=== PATIENT | male | born 1965 | race Caucasian/White ===

== ENCOUNTER 2023-03-19 07:40 | Emergency (ER) | payer MEDICARE, SELFPAY ==
[2023-03-19 07:42] VITALS: BP 169/101; PULSE 100; RESP 16; TEMP 35.9; O2SAT 95
--- NOTE | 2023-03-19 08:03 | EX.ED.DYSGE1 ---
HPI History of Present Illness Chief Complaint: Flank Pain Narrative Narrative: Patient presents with back pain for a few months he was given muscle relaxants but he still has pain is mechanical it is worse when he moves twists or especially tries to get out of the car. He does not have any radicular symptoms, no weakness or paresthesias. He does have a history of spinal stenosis status post upper lumbar and lower thoracic surgery [facility] Medical History (Updated 03/19/23 @ 08:[address] Terell Shields MD) Kidney anomaly, congenital Spinal cord compression due to degenerative disorder of spinal column Home Medications cetirizine 10 mg capsule (Zyrtec) 10 mg PO DAILY #14 CAPSULES 03/19/23 [Rx Last Taken Unknown] naproxen 500 mg tablet (Naprosyn) 500 mg PO BID PRN pain #20 tabs 03/19/23 [Rx Last Taken Unknown] tizanidine 4 mg tablet 4 mg PO QHS PRN muscle spasticity #20 tabs 03/19/23 [Rx Last Taken Unknown] Allergy/AdvReac Type Severity Reaction Status Date / Time No Known Allergies Allergy Verified 03/19/23 07:42 Social History Smoking Status: Never smoker ROS ROS ED ROS Narrative Past medical history: Reviewed Medications: Reviewed Social history: Noncontributory Review of systems: All systems negative except as indicated General: No fever Neck: No neck pain Cardiovascular: No chest pain Respiratory: No shortness of breath or cough Gastrointestinal: No abdominal pain, nausea vomiting or diarrhea Genitourinary: No dysuria, no hematuria. No flank pain. Musculoskeletal: Back pain as in HPI Skin: No rash Neurological: No weakness or paresthesias EXAM Physical Exam Narrative Exam Narrative: Vitals reviewed General: Patient appears in some discomfort HEENT: Moist mucous membranes. He has some rhinorrhea, swollen nasal turbinates however there pain consistent with likely allergic rhinitis. Very slight postnasal drip is present. Neck: Nontender Cardiovascular normal heart rate Respiratory: No respiratory difficulty speaking in full sentences Abdomen: Soft and nontender, there is no suprapubic mass or pain Back: There is some tenderness over the lumbar region, pain is mostly left paraspinal region. It does not extend into the CVA region. It is mechanical and quite reproducible. Extremities: Moves all extremities without joint pain or signs of trauma Neurological: There is normal plantar flexion and dorsiflexion of both feet and great toes. Patellar and Achilles reflexes are normal. Normal strength and sensation. Negative straight leg test. Skin: No rash Psychiatric: Slightly anxious. Const Vital Signs: 03/19/23 07:42 Temperature 96.7 F L Temperature Source Temporal Pulse Rate 100 Respiratory Rate 16 Blood Pressure 169/101 H Blood Pressure Mean 123 Pulse Ox 95 Oxygen Delivery Method Room Air MDM MDM MDM Narrative Medical decision making narrative: Not related to his chief complaint however patient does have evidence of allergic rhinitis which she asked me to treat. I will give him Zyrtec. He has lumbar back pain, chief complaint did say flank pain however the patient's pain is not in that region I thought about kidney stones I do not think patient has kidney stones. His pain is quite mechanical and reproducible therefore I am not worried about an intra-abdominal or aortic catastrophe. X-ray LS-spine read by me is unremarkable other than hardware and degeneration but no acute fracture. He may have a spinal issue therefore referred to spinal surgeon in [facility]. Otherwise I will treat with muscle relaxers and NSAIDs. I will also give him Zyrtec for his allergic rhinitis. He does not meet criteria for a stat MRI at this time as he has no red flags. Radiography Diagnostic Testing: LS-spine x-ray read by me as normal Discharge Plan Triage Chief Complaint: Flank Pain ED Provider: Terell Shields Dx/Rx/DC Orders Clinical Impression: Back pain, Allergic rhinitis Instructions: Back Basics: A Healthy Spine Prescriptions: New naproxen [Naprosyn] 500 mg tablet 500 mg PO BID PRN (Reason: pain) Qty: 20 0RF Zyrtec 10 mg capsule 10 mg PO DAILY Qty: 14 0RF tizanidine 4 mg tablet 4 mg PO QHS PRN (Reason: muscle spasticity) Qty: 20 0RF Primary Care Provider: Artur Miles Referrals: Artur Miles MD [Primary Care Provider] - Artur Ugarte DO [Med Staff - Active Staff] - 3-5 Days Disposition Disposition: Home, Self Care
--- NOTE | 2023-03-19 08:07 | RAD_ITS ---
STUDY: X-RAY - LUMBAR SPINE REASON FOR EXAM: Male, 58 years old. Right lower back pain for 2 days. TECHNIQUE: 2 view(s) of the lumbar spine were obtained. COMPARISON: None FINDINGS: Normal lumbar lordosis. There is a mild levoscoliosis of the lumbar spine. There is a normal alignment of the vertebrae. There is multilevel endplate spondylosis of the lumbar vertebrae. There is multi-level degenerative disc disease with multi-level disc space narrowing. Surgical clips are seen in the right upper quadrant. Prior fusion at the T11-T12 level. RAD/Lumbar Spine 2 or 3 Views IMPRESSION: Degenerative changes of the spine, as detailed above. Electronically Signed: Bhaskar Domingo MD at 8:35 EDT ,
[2023-03-19 08:28] VITALS: BMI 32.3
== END 2023-03-19 08:29 | disposition home or self-care (01) ==
LOC: ED 08:28
PROVIDERS: Emergency Provider Emergency Medicine; PCP Family Medicine; Visit Provider Emergency Medicine
DX: M54.9 Dorsalgia, unspecified (principal); J30.9 Allergic rhinitis, unspecified
CPT/HCPCS: 72100; 99282

== ENCOUNTER 2023-03-27 08:44 | Emergency (ER) | payer MEDICARE, SELFPAY ==
[2023-03-27 08:47] VITALS: BP 173/94; PULSE 86; PULSE 91; RESP 14; RESP 16; TEMP 36.5; O2SAT 95; O2SAT 97; BMI 31.9
[2023-03-27 08:53] VITALS: BP 173/94; PULSE 90; RESP 14; TEMP 36.5; O2SAT 92; O2SAT 95
--- NOTE | 2023-03-27 09:00 | EKG12_ITS ---
Test Reason : SOB Blood Pressure : / mmHG Vent. Rate : 084 BPM Atrial Rate : 084 BPM P-R Int : 206 ms QRS Dur : 088 ms QT Int : 384 ms P-R-T Axes : 056 054 052 degrees QTc Int : 453 ms Normal sinus rhythm Normal ECG Confirmed by SREE CLINE, LUCIE ([id number]), fan mail editor NAKITA WARE ([id number]) on 03/29/2023 9:33:54 AM Referred By: Confirmed By:LCUIE BALBUENA MD
--- NOTE | 2023-03-27 09:00 | RAD_ITS ---
STUDY: X-RAY CHEST REASON FOR EXAM: Male, 58 years old. Dyspnea. TECHNIQUE: Single frontal view of the chest. COMPARISON: None. FINDINGS: Mild hyperinflation with scattered healed annulus calcifications. There is no demonstrated pleural abnormality. Normal size heart. Normal mediastinum and haile. Normal visualized pulmonary arteries. Normal visualized aortic arch and descending thoracic aorta. Normal visualized thoracic spine. Normal visualized ribs, clavicles, and shoulders. Posterior fusion of the upper lumbar spine identified. There is no demonstrated abnormality of the visualized soft tissue structures of the upper abdomen. RAD/Chest 1 View (Portable) IMPRESSION: Hyperinflation with no acute or active cardiopulmonary disease. Electronically Signed: Wyatt Gray, at 9:45 EDT ,
--- NOTE | 2023-03-27 09:02 | ED.VIS.DYS ---
HPI History of Present Illness Chief Complaint: Shortness of Breath Detail of Chief Complaint: Shortness of breath and generalized weakness Informant: patient Narrative Narrative: Patient presents the emergency department complaint of not feeling well for about 2 weeks. Patient states that he was in the emergency department last weekend was diagnosed with allergic rhinitis and back pain. Patient has history of some chronic back pain issues as he had multiple back surgeries. Patient saw his primary care physician yesterday and had a chest x-ray and was started on Augmentin. Patient does not know the results of his chest x-ray. This morning he woke up and after showering felt very weak and shaky and he called EMS. He complains of some mild dyspnea. He does have a cough that is productive of green sputum at times. He denies chest pain. Patient is currently on Eliquis for history of DVT and states that he has been compliant with his medication. Denies sick contacts. Patient also with history of diabetes and hypertension. EMS gave patient 2 DuoNeb aerosols and Solu-Medrol 125 mg IV. [facility] Medical History (Updated 03/27/23 @ 10:[address] Haylee Greene, ) Kidney anomaly, congenital Spinal cord compression due to degenerative disorder of spinal column Home Medications cetirizine 10 mg capsule (Zyrtec) 10 mg PO DAILY #14 CAPSULES 03/19/23 [Rx Last Taken Unknown] naproxen 500 mg tablet (Naprosyn) 500 mg PO BID PRN pain #20 tabs 03/19/23 [Rx Last Taken Unknown] tizanidine 4 mg tablet 4 mg PO QHS PRN muscle spasticity #20 tabs 03/19/23 [Rx Last Taken Unknown] prednisone 20 mg tablet 20 mg PO BID #10 tabs 03/27/23 [Rx Last Taken Unknown] Allergy/AdvReac Type Severity Reaction Status Date / Time No Known Allergies Allergy Verified 03/19/23 07:42 Social History Smoking Status: Never smoker ROS ROS ED Review of Systems ROS Unobtainable: other Constitutional Constitutional ED: Reports lethargy; Denies chills, fever(s), sweats or weight loss Eyes Eyes: Denies blurry vision, change in vision or diplopia ENT ENT ED: Denies rhinorrhea or sore throat Cardiovascular Cardiovascular: Denies chest pain, orthopnea or racing heartbeat Respiratory/Chest Respiratory/Chest: Reports dyspnea and dyspnea on exertion; Denies cough, orthopnea or sputum Gastrointestinal Gastrointestinal: Denies abdominal pain, diarrhea, nausea or vomiting Genitourinary Genitourinary ED: Denies dysuria, hematuria or urinary frequency Musculoskeletal Musculoskeletal: Denies arthralgias, back pain, myalgias or neck pain Integumentary Denies abscess, Abrasions or rash Neurologic Neurologic: Reports weakness; Denies headache(s) Psychiatric Psychiatric: Denies anxiety, depression or suicidal thoughts Endocrine Endocrinology: Denies polydipsia, polyphagia or polyuria Hematologic/Lymphatic Hematologic/Lymphatic: Denies easy bleeding, easy bruising or lymphadenopathy Allergic/Immunologic Allergic/Immunologic ED: Denies mouth swelling, tongue swelling or urticaria EXAM Physical Exam Const Vital Signs: 03/27/23 08:47 03/27/23 08:53 03/27/23 08:53 Temperature 97.7 F L 97.7 F L Temperature Source Temporal Temporal Pulse Rate 91 90 Respiratory Rate 14 14 Respiratory Depth Normal Respiratory Pattern Normal Blood Pressure 173/94 H 173/94 H Blood Pressure Mean 120 120 Pulse Ox 95 92 Oxygen Delivery Method Room Air Room Air Room Air 03/27/23 08:47 Temperature 97.7 F L Temperature Source Temporal Pulse Rate 86 Respiratory Rate 16 Respiratory Depth Respiratory Pattern Blood Pressure 173/94 H Blood Pressure Mean 120 Pulse Ox 97 Oxygen Delivery Method Room Air Positive well nourished and well developed General Appearance ED: well developed and NAD HEENT Reports TM's clear and moist mucous membranes normocephalic and atraumatic; Negative for trauma or tenderness Tympanic Membrane ED: Yes TM's clear Eyes PERRL and EOMs intact bilaterally General Eye ED: Negative for pale conjunctiva or scleral icterus Neck no lymphadenopathy, supple and no JVD General: Negative for tenderness Chest Wall inspection of chest normal and palpation of chest normal Chest: Negative for tenderness Resp normal respiratory effort and clear to auscultation bilaterally Resp Narrative: No excess or muscle use or retractions. No conversational dyspnea. He does have some faint expiratory wheezes bilaterally. Effort and Inspection: Negative for respiratory distress or pain with movement Auscultation: wheezes; Negative for rhonchi or diminished lung sounds Cardio regular rate, regular rhythm, S1 normal heart sound, S2 normal heart sound and no murmurs Peripheral Pulses: pulses 2+ throughout GI normal to inspection, nondistended, normoactive bowel sounds, soft to palpation, non-tender, non-distended and no masses Back/Spine no CVA tenderness and no thoracic nor lumbar tenderness Extremity normal to inspection General Extremety ED: Negative for edema General Extremity: Negative for edema Neuro oriented x3, CN's II-XII intact bilaterally, no sensory deficits noted and gait normal Sensorium / Orientation: awake, alert, oriented to person, oriented to place and oriented to time Motor Exam: strength 5/5 throughout and strength abnormal Psych mental status grossly normal Skin no rashes or lesions noted and no wounds MDM MDM MDM Narrative Medical decision making narrative: Patient presents with cough and illness x2 weeks. He complained of some shortness of breath this morning as well as generalized weakness and feeling shaky. Shakiness and feeling weak started after shower. In the differential would be vasovagal episode versus pneumonia versus coronary syndrome which is less likely as he is not having chest pain. Patient has no history of anxiety. IV line established on arrival. Patient had received DuoNeb aerosols and Solu-Medrol by squad. CBC with differential obtained showed a white count of 4.5 with hemoglobin of 15 and platelet count of 207. Chemistries unremarkable. Troponin was normal. Lactate was slightly elevated at 2.5. I do not feel patient is septic. Patient had a chest x-ray that showed some hyperinflation otherwise no evidence of infiltrate or pneumothorax or other acute disease process. Clinically I do not feel his symptoms consistent with PE I feel this is very unlikely especially given that he is been compliant with his Eliquis. Patient was ambulated in department and had no hypoxemia. I feel he can be discharged to home. He did have wheezing on exam therefore he will be given a albuterol inhaler for home and started on prednisone. He is to finish his Augmentin that started yesterday. Patient to follow-up with primary care physician 3 to 5 days. He is advised to return if increasing shortness of breath or condition should worsen anyway. Lab Data Attestation: I reviewed the patient's lab results. Labs: Laboratory Results - last 24 hr 03/27/23 03/27/23 03/27/23 09:20 09:20 09:20 WBC 4.5 RBC 5.29 Hgb 15.0 Hct 46.0 MCV 87.0 MCH 28.4 MCHC 32.6 RDW Std Deviation 48.3 H RDW Coeff of Ariel 15.4 H Plt Count 207 MPV 9.0 Immature Gran % (Auto) 0.400 Neut % (Auto) 64.1 Lymph % (Auto) 25.0 Spink % (Auto) 7.1 Eos % (Auto) 2.5 Baso % (Auto) 0.9 Absolute Neuts (auto) 2.9 Absolute Lymphs (auto) 1.12 Nucleated RBC % 0 Sodium 144 Potassium 3.8 Chloride 110 H Carbon Dioxide 27.0 Anion Gap 7 BUN 15 Creatinine 1.12 Estim Creat Clear Calc 76.57 Est GFR (MDRD) Af Amer 87 Est GFR (MDRD) Non-Af 72 BUN/Creatinine Ratio 13.4 Glucose 136 H Lactic Acid 2.5 H* Calcium 9.0 Troponin I High Sens 6 B-Natriuretic Peptide 03/27/23 09:20 WBC RBC Hgb Hct MCV MCH MCHC RDW Std Deviation RDW Coeff of Ariel Plt Count MPV Immature Gran % (Auto) Neut % (Auto) Lymph % (Auto) Spink % (Auto) Eos % (Auto) Baso % (Auto) Absolute Neuts (auto) Absolute Lymphs (auto) Nucleated RBC % Sodium Potassium Chloride Carbon Dioxide Anion Gap BUN Creatinine Estim Creat Clear Calc Est GFR (MDRD) Af Amer Est GFR (MDRD) Non-Af BUN/Creatinine Ratio Glucose Lactic Acid Calcium Troponin I High Sens B-Natriuretic Peptide 8.8 Radiography Diagnostic Testing: Clinical Impression(s) from Imaging Studies Chest X-Ray 03/27/23 09:00 IMPRESSION: Hyperinflation with no acute or active cardiopulmonary disease. Electronically Signed: Wyatt Gray, at 9:45 EDT , 1 view chest x-ray obtained interpreted by myself as no evidence of infiltrate or pneumothorax or acute disease process. Radiology felt there was hyperinflation otherwise nothing acute. EKG Initial EKG: Attestation: I personally reviewed and interpreted this EKG as follows: Comments: Sinus rhythm with a rate of 84 bpm with no acute ST segment changes Discharge Plan Triage Chief Complaint: Shortness of Breath ED Provider: Haylee Greene Dx/Rx/DC Orders Clinical Impression: Asthmatic bronchitis, Weakness Instructions: ED Bronchitis with Wheezing (Adult), ED Weakness (Uncertain Cause) Prescriptions: New prednisone 20 mg tablet 20 mg PO BID Qty: 10 0RF No Action naproxen [Naprosyn] 500 mg tablet 500 mg PO BID PRN (Reason: pain) Qty: 20 0RF Zyrtec 10 mg capsule 10 mg PO DAILY Qty: 14 0RF tizanidine 4 mg tablet 4 mg PO QHS PRN (Reason: muscle spasticity) Qty: 20 0RF Primary Care Provider: Artur Miles Referrals: Artur Miles MD [Primary Care Provider] - 3-5 Days Disposition Disposition: Home, Self Care
[2023-03-27] MEDS: 0.9% Normal Saline 1,000 ML 150 ML IV (09:17)
[2023-03-27 09:28] LABS: Absolute Lymphocyte Count 1.12 X10^3/uL (0.83-4.51); Absolute Neutrophil Count 2.9 X10^3/uL (2.0-7.7); Basophil# 0.04 X10^3/uL; Basophil% 0.9 % (0-1); Eosinophil# 0.11 X10^3/uL; Eosinophils% 2.5 % (0-5); Lymphocyte # 1.12 X10^3/ul (0.83-4.51); Mean Corp Hgb Conc 32.6 g/dL (32-36); Mean Corpuscular Hgb 28.4 pg (27.0-32.0); Monocyte# 0.32 X10^3/uL; Monocyte% 7.1 % (0-10); NRBC Flagged by Analyzer 0 % (0-5); Neutrophil # 2.87 X10^3/uL (2.7-7.7); Neutrophil % 64.1 % (47-70); Platelet Count 207 K/mm3 (150-450); RBC Distribution Width CV 15.4 % (11.6-14.6); RBC Distribution Width SD 48.3 fl (35.1-43.9); Red Blood Count 5.29 M/mm3 (4.6-6.2); White Blood Count 4.5 K/mm3 (4.4-11.0)
[2023-03-27 09:46] LABS: Anion Gap 7 (5-15); BUN 15 mg/dL (7-18); BUN/Creat Ratio 13.4 RATIO (10-20); Chloride 110 mmol/L (98-107); Creatinine, Serum 1.12 mg/dL (0.70-1.30); EST Glomerular Filtration Rate 72 mL/min (>60); Est Glom Filt Rate - Afr Amer 87 mL/min (>60); Estimated Creatinine Clearance 76.57 ml/min; Glucose 136 mg/dL (74-106); Potassium 3.8 mmol/L (3.5-5.1); Sodium Level 144 mmol/L (136-145); Troponin-I HS 6 pg/mL (3.0-78.0)
[2023-03-27 09:48] LABS: BNP,B-Type NATRIURETIC PEPTIDE 8.8 pg/mL (0-100)
[2023-03-27 09:50] VITALS: O2SAT 95
[2023-03-27 09:53] LABS: Lactic Acid 2.5 mmol/L (0.4-1.9)
[2023-03-27] MEDS: Albuterol Sulfate 8 gm Inhaler (60 puffs) 2 PUFF INHALATION (10:43)
[2023-03-27 13:22] LABS: Reflex Lactate? Y
== END 2023-03-27 10:51 | disposition home or self-care (01) ==
PROVIDERS: Emergency Provider Emergency Medicine; PCP Family Medicine; Visit Provider Emergency Medicine
DX: J45.909 Unspecified asthma, uncomplicated (principal); E11.9 Type 2 diabetes mellitus without complications; R53.1 Weakness; I10 Essential (primary) hypertension; Z86.718 Personal history of other venous thrombosis and embolism; Z79.01 Long term (current) use of anticoagulants
CPT/HCPCS: 71045; 80048; 83605; 83880; 84484; 85025; 87040; 87149; 87428; 93005; 96360; 96361; 99285